=== PATIENT | female | born 1975 | race Caucasian/White ===

== ENCOUNTER → 2017-04-07 14:58 | Outpatient (CLI) | payer BC, SELFPAY ==
--- NOTE | 2017-04-07 15:28 | XR_ITS ---
XR chest 2V HISTORY: ITS.REASON: Cough ORDERING PHYSICIAN: Hugh Cohen MD PATIENT AGE: 41 years COMPARISON: None available FINDINGS: The cardiomediastinal silhouette and pulmonary vascularity are within normal limits. The lungs are clear without infiltrates, suspicious nodules, or pleural effusions. Calcified granuloma is present in the right upper lobe. No acute bony abnormalities. IMPRESSION: Negative chest, no acute finding
[2017-04-07 17:07] LABS: Basophils % 0.7 % (0.1-2.0); Eosinophils # 0.1 K/mm3 (0.0-0.4); Eosinophils % 1.6 % (0.1-12.0); Hematocrit 37.9 % (37.0-47.0); Hemoglobin 12.3 g/dL (12.2-16.2); Lymphocytes # 2.6 K/mm3 (0.7-4.5); Lymphocytes % 50.6 K/mm3 (10-50); Mean Corpuscular HGB Conc 32.5 g/dL (31.8-35.4); Mean Corpuscular Hemoglobin 29.3 pg (27.0-31.2); Mean Corpuscular Volume 90.3 fl (81-99); Mean Platelet Volume 7.4 fl (7.4-10.4); Monocytes # 0.4 K/mm3 (0.1-1.0); Monocytes % 7.4 % (1.7-9.3); Neutrophils % 39.8 % (37.0-80.0); Platelet Count 366 K/mm3 (142-424); Red Cell Distribution Width 12.4 % (11.5-17.5); White Blood Count 5.1 K/mm3 (4.8-10.8)
[2017-04-07 17:10] LABS: MANUAL DIFFERENTIAL MANUAL DIFFERENTIAL (MANUAL DIFF)
[2017-04-07 17:33] LABS: Alanine Aminotransferase 25 U/L (12-78); Albumin Level 4.3 gm/dL (3.4-5.0); Albumin/Globulin Ratio 1.3 (1.1-1.8); Alkaline Phosphatase 77 U/L (46-116); Aspartate Amino Transferase 23 U/L (15-37); Bilirubin,Total 0.3 mg/dL (0.2-1.0); Blood Urea Nitrogen 10 mg/dL (7-18); Carbon Dioxide 32 mmol/L (21.0-32.0); Chloride 101 mmol/L (98-107); Creatinine,Serum 0.54 mg/dL (0.55-1.02); Estimated Glomerular Filt Rate 125 ml/min (>60); GFR (African American) 151 ML/MIN (>60); Globulin 3.4 gm/dl (1.3-3.2); Glucose 94 mg/dL (74-106); Sodium 141 mmol/L (136-145); T4 (Thyroxine) 9.2 ug/dl (4.7-13.3); Thyroid Stimulating Hormone 2.21 uIU/ml (0.358-3.740); Total Protein,Serum 7.7 gm/dL (6.4-8.2)
[2017-04-07 19:22] LABS: Eosinophils % 1 % (0-3); Lymphocytes % 38 % (10-50); Monocytes % 15 % (2-9); Neutrophils % 45 % (42-76); Platelet Estimate Normal; Total Cells Counted 100
[2017-04-07 19:23] LABS: RBC Morphology Normal
[2017-04-07 19:24] LABS: Erythrocyte Sedimentation Rate 12 mm/hr (0-20)
[2017-04-09 16:10] LABS: Hep A Ab, IgM Negative (Negative); Hepatitis B Core Antibody IgM Negative (Negative); Hepatitis B Surface Antigen Negative (Negative)
[2017-04-09 18:01] LABS: Hepatitis C Antibody >11.0 s/co ratio (0.0-0.9)
[2017-04-10 10:47] LABS: Vitamin D 25 Hydroxy 34.2 ng/mL (30.0-100.0)
== END ==
PROVIDERS: Physician Assistant; PCP Emergency Medicine; Visit Provider Emergency Medicine
DX: R53.83 Other fatigue (principal); R05 Cough; R76.8 Other specified abnormal immunological findings in serum
CPT/HCPCS: 71046; 80053; 80074; 82652; 84436; 84443; 85007; 85025; 85651

== ENCOUNTER → 2017-04-10 15:19 | Outpatient (REF) | payer BC, SELFPAY | LOC: LAB 15:19 | PROVIDERS: Visit Provider Physician Assistant | DX: R76.8 Other specified abnormal immunological findings in serum (principal) ==

== ENCOUNTER → 2017-04-27 14:16 | Outpatient (CLI) | payer BC, SELFPAY ==
--- NOTE | 2017-04-27 14:17 | US_ITS ---
US transvaginal HISTORY: Dysfunctional uterine bleeding, pelvic pain ITS.REASON: PELVIC PAIN AND DUB ORDERING PHYSICIAN: Savage Lan MD PATIENT AGE: 41 years COMPARISON: None FINDINGS: The uterus measures 8.5 x 4.4 x 5 cm with a combined endometrial thickness of 4 mm. There is a 1.8 x 1.9 cm area of isoechogenicity in the fundal region may be due to fibroid. A 2 cm area of slight decreased echogenicity is present in the posterior aspect of the uterus consistent with a fibroid. Right ovary is 2.9 x 2 cm and left ovary is 2.9 x 1.2 cm both have an unremarkable appearance. No cul-de-sac fluid evident. IMPRESSION: Fibroid involvement of the uterus otherwise negative pelvic ultrasound
== END ==
PROVIDERS: PCP Emergency Medicine; Visit Provider Obstetrics & Gynecology
DX: N93.8 Other specified abnormal uterine and vaginal bleeding (principal)
CPT/HCPCS: 76830

== ENCOUNTER → 2017-05-12 12:11 | Outpatient (CLI) | payer BC, SELFPAY ==
[2017-05-12 18:01] LABS: Amphetamine/Metha Screen,Urine Negative ng/mL (<1000); Barbiturates Screen,Urine Negative ng/mL (<200); Benzodiazepines Screen,Urine Negative ng/mL (200); Cannabinoid Screen,Urine Negative ng/mL (<50); Cocaine Screen,Urine Negative ng/g (<300); Methadone Screen,Urine Negative ng/mL (<300); Opiate Screen,Urine Negative ng/mL (<300); Phencyclidine Screen,Urine Negative ng/mL (<25)
== END ==
PROVIDERS: Visit Provider Nurse Practitioner Family
DX: G43.909 Migraine, unspecified, not intractable, without status migrainosus (principal)
CPT/HCPCS: 80305